=== PATIENT | female | born 1960 | race Caucasian/White ===

== ENCOUNTER 2019-06-12 01:11 | Day surgery (SDC) | payer MEDICARE, SELFPAY ==
[2019-06-10 15:16] VITALS: BMI 27.0
[2019-06-12] VITALS (7 sets, daily range): BP systolic 116–133; BP diastolic 57–71; PULSE 60–79; RESP 12–18; TEMP 36.8–37.4; O2SAT 97–100
--- NOTE | ~2019-06-12 | XR_ITS ---
EXAMINATION: XR abdomen/kub 1V DATE: 06/12/2019 11:29 INDICATION: Left renal stone. TECHNIQUE: A supine view of the abdomen on 2 radiographs was obtained. COMPARISON: CT abdomen and pelvis 05/07/2019 FINDINGS: There are no dilated loops of bowel. There is a left internal ureteral stent in expected po sition. There is a 7 mm stone in left kidney lower pole. There are phleboliths in the pelvis. There i s plate and screw fixation of right acetabulum. IMPRESSION: 1. 7 mm stone in left kidney 2. Left internal ureteral stent in expected position. Reviewed, dictated and finalized at location A. [facility] ATTORNEY GENERAL
[2019-06-12] MEDS: LACTATED RINGERS 1,000 ML 30 ML IV CONT (12:00)
[2019-06-12 12:23] LABS: Partial Thromboplastin Time 24.2 SECONDS (22.3-36.8); Prothrombin Time 12.4 Seconds (11.1-14.7)
--- NOTE | 2019-06-12 12:39 | WPDANESEPPF ---
Anes - Initial Pre Proc Eval Procedure: Operation Date: 06/12/19 13:30 Proposed Procedures p Left Extracorporeal Shock Wave Lithotripsy with Stent Removal - Gama Grayson MD Date/Time: 06/12/19 12:39 Surgeon: Gama Grayson MD Pre Op Diagnosis: kidney stone Patient Data Age: 58 Gender: F Height: 5 ft 8 in Weight: 80 kg Last Vital Signs Temp 99.0 F 06/12/19 12:21 Pulse 73 06/12/19 12:21 Resp 16 06/12/19 12:21 BP 120/57 L 06/12/19 12:21 Pulse Ox 100 06/12/19 12:21 Allergies Allergy/AdvReac Type Severity Reaction Status Date / Time No Known Allergies Allergy Verified 06/12/19 12:16 Home Medications Medication Instructions Recorded Confirmed Type sertraline 100 mg PO DAILY 05/07/19 06/12/19 History ferrous sulfate [Iron (ferrous 650 mg PO TID 06/10/19 06/12/19 History sulfate)] vitamin B complex 1 cap PO DAILY 06/10/19 06/12/19 History Laboratory Tests 06/12/19 12:09 PT 12.4 Seconds Seconds (11.1-14.7) INR 1.0 APTT 24.2 SECONDS SECONDS (22.3-36.8) Patient hx anesthesia problems: none Family hx anesthesia problems: none PMFSH Social History Social History Social History: Her 's durable power state's attorney for healthcare. She does need herself to be a full code. She has 3 children. Patient stated that she occasionally smokes cigarettes. But has not done so in many years. She said she does smoke 1 on occasion. 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 Smoking status: Never smoker Second hand tobacco smoke exposure: Yes Alcohol intake: never Drinks per week: 1 Substance use: never Substance use type: does not use Gender identity (if verbalized by the patient): Female Spiritual care concerns: No Agree to blood products: Yes Anes - Eval Final PreProcedure Day of Procedure 06/12/19 12:39 Patient weight: normal Heart: regular rate and rhythm Lungs: clear to auscultation Airway: Mallampati scale class II Neurological: alert and oriented Last oral intake: >/= 8 hours ASA classification: II Emergent: no Anesthetic plan: proceed Anesthesia type and monitoring: general LMA and standard monitoring Informed Consent: The patient's anesthetic plan and its attendant risks and benefits were discussed with the patient/family/POA. Questions were solicited and answers provided to the satisfaction of the patient/family/POA.
--- NOTE | 2019-06-12 12:46 | WPDHPUPDATE1 ---
History and Physical Update Update Date/Time: 06/12/19 12:46 History and Physical has been reviewed, including an updated exam of the patient. There are NO changes in the patient's condition. Risks, benefits, and alternatives have been discussed and questions answered. Patient agrees to proceed with procedure.
[2019-06-12] MEDS: ceFAZolin 2 GM/D5W 50 ML 2 GM/50 ML BAG IVPB (14:15)
--- NOTE | 2019-06-12 14:43 | PM.PROC ---
Procedure Note - Detailed Date of procedure: 06/12/19 Pre-op diagnosis: kidney stone Post-op diagnosis: same Procedure performed: 1. Cystoscopy, left ureteral stent removal. 2. Left ESWL Description of procedure: The patient was brought to the operative suite where she was placed in the frog-legged position on the Dornier lithotripter table. Flexible cystoscopy was undertaken with a 16F flexible cystoscopy. Her urethra and bladder neck were endoscopically normal. The bladder mucosa was normal and there was a single, orthotopic ureteral orifice bilaterally. The tip of the stent was grasped and the stent was removed with ease. The patient was then repositioned in the supine position and the focal point of the lithotriptor was placed at a 6mm left renal calculus. A total of 2500 shocks were delivered at a power setting of 7. There appeared to be good fragmentation of the stone. The patient tolerated the procedure well and was taken to the recovery room in good condition. Anesthesia: GETA Surgeon: Gama Grayson MD Estimated blood loss (mL): 0 Drains: No Packing: No Pathology: none sent Complications: No immediate complications Condition: stable Disposition: PACU
== END 2019-06-12 17:02 | disposition home or self-care (01) ==
PROVIDERS: Visit Provider Urology
PROC: (CPT 50590; principal; 2019-06-12 13:30)
DX: N20.0 Calculus of kidney (principal)
CPT/HCPCS: 50590; 36415; 74018; 85610; 85730; A9270; C1769; J0131; J0330; J0690; J1100; J2250; J2370; J2405; J2704; J7030; J7120

== ENCOUNTER 2019-07-29 09:37 | Outpatient (CLI) | payer MEDICARE, SELFPAY ==
--- NOTE | ~2019-07-29 | XR_ITS ---
EXAMINATION: XR abdomen/kub 1V INDICATION: Left ureteral stone TECHNIQUE: Supine views of the abdomen were obtained on 2 radiographs. COMPARISON: 06/12/2019 FINDINGS: The left internal ureteral stent has been. An 8 mm stone previously seen in the lower pole of the left kidney is no longer identified. There are stone fragments measuring up to 5 mm in the dis diamante left ureter near the ureterovesicular junction. A punctate stone is seen in the lower pole of the left kidney. The bowel gas pattern is normal. There is a moderate to large amount of colonic stool. Internal stabilization hardware is present in the right acetabulum. IMPRESSION: 1. Removal of the internal ureteral stent and interval treatment of the previously described left kid harlan stone with Steinstrasse of the distal left ureter and stone fragments measuring up to 5 mm. Reviewed, dictated and finalized at location A. CENTER REPRESENTATIVE IMPRESSION: 1. Removal of the internal ureteral stent and interval treatment of the previou sly described left kidney stone with Steinstrasse of the distal left ureter and stone fragments measuring up to 5 mm.
== END 2019-07-29 09:38 | disposition home or self-care (01) ==
LOC: CHSIMG 09:40
PROVIDERS: Visit Provider Urology
DX: N20.1 Calculus of ureter (principal)
CPT/HCPCS: 74018

== ENCOUNTER 2019-10-28 08:04 | Outpatient (CLI) | payer MEDICARE, SELFPAY ==
[2019-10-28 08:15] LABS: Hematocrit 41.8 % (35.0-49.0); Hemoglobin 14.2 g/dL (12.0-15.0); Mean Corpuscular Hemoglobin 31.1 pg (27.0-31.0); Mean Corpuscular Volume 91.7 fL (78.0-102.0); Mean Platelet Volume 9.9 fl (9.2-11.8); Platelet Count Result 204 K/mm3 (150-420); Red Blood Count 4.56 M/mm3 (4.20-5.40); Red Cell Distribution Width 12.1 % (11.6-14.4); White Blood Count 6.5 K/mm3 (4.8-10.8)
[2019-10-28 09:09] LABS: Alanine Aminotransferase 22 U/L (14-59); Alkaline Phosphatase 73 U/L (46-116); Anion Gap 13.4 mmol/L (7-16); Aspartate Amino Transferase 16 U/L (15-37); Bilirubin,Total 0.6 mg/dL (0.00-1.00); Blood Urea Nitrogen 22 mg/dL (7-18); Carbon Dioxide 26 mmol/L (21-32); Chloride 107 mmol/L (98-108); Cholesterol 203 mg/dL (0-200); Estimated Glomerular Filt Rate 51; Ferritin 376 ng/mL (8-252); Glucose 95 mg/dL (70-99); HDL Direct 80 mg/dL (40-60); Iron 109 ug/dL (50-170); LDL Cholesterol Calculated 110 mg/dL (<130); Osmolality Calculated 297 mOsm/kg (285-295); Percent Iron Saturation 41 % (12-57); Potassium 4.4 mmol/L (3.5-5.1); Sodium 142 mmol/L (136-145); Total Protein 7.1 g/dL (6.4-8.2); Triglycerides 63 mg/dL (0-150)
== END 2019-10-28 08:05 | disposition home or self-care (01) ==
LOC: CHSLAB 08:07
PROVIDERS: PCP Family Medicine; Visit Provider Family Medicine
DX: D69.6 Thrombocytopenia, unspecified (principal); F32.9 Major depressive disorder, single episode, unspecified; D64.9 Anemia, unspecified; R79.0 Abnormal level of blood mineral; Z00.00 Encounter for general adult medical examination without abnormal findings
CPT/HCPCS: 36415; 80053; 80061; 82728; 83540; 83550; 85027

== ENCOUNTER 2019-12-12 01:48 | Outpatient (CLI) | payer MEDICARE, SELFPAY ==
[2019-12-12 21:41] LABS: SARS-CoV-2 RNA PCR Negative
== END 2019-12-12 01:49 | disposition home or self-care (01) ==
LOC: ANHCOVIDDT 01:48
PROVIDERS: PCP Family Medicine; Visit Provider Surgery
DX: Z01.818 Encounter for other preprocedural examination (principal); Z11.59 Encounter for screening for other viral diseases
CPT/HCPCS: 87635; C9803; U0003

== ENCOUNTER 2019-12-15 03:03 | Day surgery (SDC) | payer MEDICARE, SELFPAY ==
[2019-12-10 11:34] VITALS: BMI 27.4
[2019-12-15 08:36] VITALS: BP 118/85; PULSE 91; RESP 16; TEMP 37.1; O2SAT 98; BMI 26.6
--- NOTE | 2019-12-15 08:40 | SUR.PREOP ---
ALTERNATE PHONE NUMBER FOR EMILIA [phone]
[2019-12-15] MEDS: LACTATED RINGERS 1,000 ML 150 ML IV CONT (09:02)
--- NOTE | 2019-12-15 09:25 | WPDANESEPPF ---
Anes - Initial Pre Proc Eval Procedure: Operation Date: 12/15/19 10:15 Proposed Procedures p Colonoscopy - Fede Dominguez DO Date/Time: 12/15/19 09:25 Surgeon: Fede Dominguez DO Pre Op Diagnosis: Poss Cologuard Patient Data Age: 59 Gender: F Height: 5 ft 8 in Weight: 79.5 kg Last Vital Signs Temp 37.1 C 12/15/19 08:36 Pulse 91 12/15/19 08:36 Resp 16 12/15/19 08:36 BP 118/85 12/15/19 08:36 Pulse Ox 98 12/15/19 08:36 Allergies Allergy/AdvReac Type Severity Reaction Status Date / Time No Known Allergies Allergy Verified 12/15/19 08:35 Home Medications Medication Instructions Recorded Confirmed Type ferrous sulfate [Iron (ferrous 650 mg PO TID 06/10/19 12/10/19 History sulfate)] vitamin B complex 1 cap PO DAILY 06/10/19 12/10/19 History sertraline 100 mg tablet 100 mg PO DAILY #90 tablet 11/25/19 12/10/19 Rx Patient hx anesthesia problems: none Family hx anesthesia problems: none PMFSH Past Medical History Medical History Anemia Depression Fracture of right hip requiring operative repair Headache Positive colorectal cancer screening using Cologuard test Thrombocytopenia Surgical History Surgical History H/O left knee surgery History of facial surgery Family History Family History Mother Diabetes mellitus Sibling Testicular cancer Social History Social History Social History: 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 She does need herself to be a full code. She has 3 children. Patient stated that she occasionally smokes cigarettes. But has not done so in many years. She said she does smoke 1 on occasion. 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 Smoking status: Never smoker Second hand tobacco smoke exposure: Yes Alcohol intake: never Drinks per week: 1 Substance use: never Substance use type: does not use Gender identity (if verbalized by the patient): Female Spiritual care concerns: No Agree to blood products: Yes Anes - Eval Final PreProcedure Day of Procedure 12/15/19 09:25 Patient weight: overweight Heart: regular rate and rhythm Lungs: clear to auscultation Airway: Mallampati scale class II Neurological: alert and oriented Last oral intake: >/= 8 hours ASA classification: II Emergent: no Anesthetic plan: proceed Anesthesia type and monitoring: general GIVS and standard monitoring Informed Consent: The patient's anesthetic plan and its attendant risks and benefits were discussed with the patient/family/POA. Questions were solicited and answers provided to the satisfaction of the patient/family/POA.
--- NOTE | 2019-12-15 09:27 | PM.IMHP ---
H&P: HPI History of Present Illness Chief complaint: Poss Cologuard Narrative: Jeni Sam is a 59 year old female who presents with a positive cologard test. She has never had a colonoscopy before. Denies hematochezia or melena. Grandfather had colon cancer but no first degree relatives. Review of Systems Review of Systems: All systems reviewed & are unremarkable except as noted in HPI and below Constitutional: Constitutional: Denies chills, Denies fever(s), Denies headache(s) and Denies weight loss Eyes: Eyes: Denies change in vision ENT: Denies dizziness, Denies headache(s), Denies neck mass and Denies throat swelling Cardiovascular: Cardiovascular: Denies chest pain, Denies lightheadedness and Denies dyspnea Respiratory: Respiratory: Denies cough, Denies dyspnea and Denies wheezing Gastrointestinal: Gastrointestinal: Denies abdominal pain, Denies change in bowel habits, Denies nausea and Denies vomiting Genitourinary: Genitourinary: Denies hematuria and Denies dysuria Musculoskeletal: Musculoskeletal: Reports as per HPI Integumentary/Breasts: Skin/Breast: Reports as per HPI Neurologic: Denies dizziness and Denies headache(s) Allergic/Immunologic: Allergic/Immunologic: Denies throat swelling and Denies wheezing PMFSH Past Medical History Medical History Anemia Depression Fracture of right hip requiring operative repair Headache Positive colorectal cancer screening using Cologuard test Thrombocytopenia Surgical History Surgical History H/O left knee surgery History of facial surgery Family History Family History Mother Diabetes mellitus Sibling Testicular cancer Social History Social History Social History: Her 's durable power commercial litigation attorney for healthcare. She does need herself to be a full code. She has 3 children. Patient stated that she occasionally smokes cigarettes. But has not done so in many years. She said she does smoke 1 on occasion. 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 Smoking status: Never smoker Second hand tobacco smoke exposure: Yes Alcohol intake: never Drinks per week: 1 Substance use: never Substance use type: does not use Gender identity (if verbalized by the patient): Female Spiritual care concerns: No Agree to blood products: Yes Meds Home Medications and Allergies Home Medications Medication Instructions Recorded Confirmed Type ferrous sulfate [Iron (ferrous 650 mg PO TID 06/10/19 12/10/19 History sulfate)] vitamin B complex 1 cap PO DAILY 06/10/19 12/10/19 History sertraline 100 mg tablet 100 mg PO DAILY #90 tablet 11/25/19 12/10/19 Rx Allergies Allergy/AdvReac Type Severity Reaction Status Date / Time No Known Allergies Allergy Verified 12/15/19 08:35 Vital Signs Vital Signs - 24 hr 12/15/19 08:36 Temperature 37.1 C Pulse Rate 91 Respiratory Rate 16 Blood Pressure 118/85 Pulse Oximetry 98 Exam Const: General: no acute distress and alert Orientation/consciousness: patient oriented x3 HENMT: Head: normocephalic and atraumatic Ears: hearing grossly normal bilaterally General nose exam: Normal nares present Mouth: Yes Normal oral and palatal mucosa present Eyes: Periorbital: periorbital findings normal Sclera: sclerae normal EOM: EOMs intact bilaterally Neck: Neck: normal visual inspection, no lymphadenopathy and trachea midline Chest: Chest palpation & inspection: normal inspection of the chest Resp: Effort & Inspection: normal respiratory effort Auscultation: clear to auscultation bilaterally Cardio: Jugular venous distension: no JVD Rate: regular rate Rhythm: regular rhythm Heart sounds: S1 normal heart sound present and S2 normal heart sound present Peripheral pulses:
[2019-12-15 10:13] VITALS: BP 95/58; PULSE 66; RESP 16; O2SAT 98
[2019-12-15 10:23] VITALS: BP 114/60; PULSE 55; RESP 16; O2SAT 100
[2019-12-15 10:33] VITALS: BP 114/60; PULSE 58; RESP 16; O2SAT 100
== END 2019-12-15 10:59 | disposition home or self-care (01) ==
PROVIDERS: PCP Family Medicine; Visit Provider Surgery
PROC: 0DJD8ZZ Inspection of Lower Intestinal Tract, Via Natural or Artificial Opening Endoscopic (ICD-10-PCS; CPT 45378; principal; 2019-12-15 10:15)
DX: R19.5 Other fecal abnormalities (principal); D12.8 Benign neoplasm of rectum; D12.5 Benign neoplasm of sigmoid colon; K57.30 Diverticulosis of large intestine without perforation or abscess without bleeding; D64.9 Anemia, unspecified; F32.9 Major depressive disorder, single episode, unspecified; Z72.0 Tobacco use
CPT/HCPCS: 45380; 45385; 45381; 88305; J2704; J7120

== ENCOUNTER 2020-12-13 10:07 | Outpatient (CLI) | payer MEDICARE, SELFPAY ==
[2020-12-13 10:39] LABS: Hematocrit 42.4 % (35.0-49.0); Hemoglobin 14.2 g/dL (12.0-15.0); Mean Corpuscular HGB Conc 33.5 g/dL (32.0-36.0); Mean Corpuscular Hemoglobin 31.1 pg (27.0-31.0); Mean Corpuscular Volume 92.8 fL (78.0-102.0); Mean Platelet Volume 9.6 fl (9.2-11.8); Platelet Count Result 193 K/mm3 (150-420); Red Blood Count 4.57 M/mm3 (4.20-5.40); Red Cell Distribution Width 11.8 % (11.6-14.4); White Blood Count 6.7 K/mm3 (4.8-10.8)
== END 2020-12-13 10:08 | disposition home or self-care (01) ==
LOC: CHSLAB 10:09
PROVIDERS: PCP Family Medicine; Visit Provider Family Medicine
DX: D64.9 Anemia, unspecified (principal)
CPT/HCPCS: 36415; 85027

== ENCOUNTER 2021-03-23 01:28 | Day surgery (SDC) | payer MEDICARE, SELFPAY ==
[2021-03-08 12:51] VITALS: BMI 26.6
[2021-03-23 07:47] VITALS: BP 130/83; PULSE 79; RESP 18; TEMP 36.2; O2SAT 98; BMI 26.4
[2021-03-23] MEDS: LACTATED RINGERS 1,000 ML 150 ML IV CONT (07:57)
--- NOTE | 2021-03-23 08:16 | P.PNAN_ITS ---
Anes - Initial Pre Proc Eval Procedure: Operation Date: 03/23/21 08:45 Proposed Procedures p Colonoscopy - Fede Dominguez DO Date/Time: 03/23/21 08:16 Surgeon: Fede Dominguez DO Pre Op Diagnosis: colon polyp Patient Data Age: 60 Gender: F Height: 1.73 m Weight: 78.9 kg Last Vital Signs Temp 36.2 C L 03/23/21 07:47 Pulse 79 03/23/21 07:47 Resp 18 03/23/21 07:47 BP 130/83 03/23/21 07:47 Pulse Ox 98 03/23/21 07:47 Allergies Allergy/AdvReac Type Severity Reaction Status Date / Time No Known Allergies Allergy Verified 03/23/21 07:44 Home Medications Medication Instructions Recorded Confirmed Type ferrous sulfate [Iron (ferrous 650 mg PO TID 06/10/19 03/08/21 History sulfate)] vitamin B complex 1 cap PO DAILY 06/10/19 03/08/21 History sertraline 100 mg tablet See Rx Instructions .ROUTE 03/22/21 03/23/21 Rx .COMPLEX #90 tablet Patient hx anesthesia problems: none Family hx anesthesia problems: none Results Review: All pre-operative results and documents have been reviewed as part of the pre-operative evaluation. [facility] Past Medical History Medical History Anemia Depression Fracture of right hip requiring operative repair Headache Thrombocytopenia Surgical History Surgical History H/O left knee surgery History of facial surgery Family History Family History Mother Diabetes mellitus Sibling Testicular cancer Social History Social History Social History: Her 's durable power workers compensation defense attorney for healthcare. She does need herself to be a full code. She has 3 children. Patient stated that she occasionally smokes cigarettes. But has not done so in many years. She said she does smoke 1 on occasion. 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 Smoking status: Never smoker Second hand tobacco smoke exposure: Yes Alcohol intake: never Drinks per week: 1 Substance use: never Substance use type: does not use Living arrangements: with family Gender identity (if verbalized by the patient): Female Spiritual care concerns: No Agree to blood products: Yes Anes - Eval Final PreProcedure Day of Procedure 03/23/21 08:16 Patient weight: overweight Heart: regular rate and rhythm Lungs: clear to auscultation Airway: Mallampati scale class II Neurological: alert and oriented Last oral intake: >/= 8 hours ASA classification: II Emergent: no Anesthetic plan: proceed Anesthesia type and monitoring: general GIVS and standard monitoring Results Review: All pre-operative results and documents have been reviewed as part of the pre-operative evaluation. Informed Consent: The patient's anesthetic plan and its attendant risks and benefits were discussed with the patient/family/POA. Questions were solicited and answers provided to the satisfaction of the patient/family/POA.
--- NOTE | 2021-03-23 08:53 | PM.IMHP ---
H&P: HPI History of Present Illness Date/Time: 03/23/21 08:53 Chief Complaint: History of malignant rectal polyp Narrative: this is a 60-year-old woman who presents for a follow-up colonoscopy. She had a colonoscopy 1 year ago and was found to have a rectal mass. She was referred to Colorectal surgery and wide local excision was performed. This appeared to be a malignant polyp. There is no deep invasion. Now returns for follow-up colonoscopy. Review of Systems Review of Systems: All systems reviewed & are unremarkable except as noted in HPI and below Constitutional: Constitutional: Denies chills, Denies fever(s), Denies headache(s) and Denies weight loss Eyes: Eyes: Denies change in vision ENT: Denies dizziness, Denies headache(s), Denies neck mass and Denies throat swelling Cardiovascular: Cardiovascular: Denies chest pain, Denies lightheadedness and Denies dyspnea Respiratory: Respiratory: Denies cough, Denies dyspnea and Denies wheezing Gastrointestinal: Gastrointestinal: Denies abdominal pain, Denies change in bowel habits, Denies nausea and Denies vomiting Genitourinary: Genitourinary: Denies hematuria and Denies dysuria Musculoskeletal: Musculoskeletal: Reports as per HPI Integumentary/Breasts: Skin/Breast: Reports as per HPI Neurologic: Denies dizziness and Denies headache(s) Allergic/Immunologic: Allergic/Immunologic: Denies throat swelling and Denies wheezing PMFSH Past Medical History Medical History Anemia Depression Fracture of right hip requiring operative repair Headache Thrombocytopenia Surgical History Surgical History H/O left knee surgery History of facial surgery Family History Family History Mother Diabetes mellitus Sibling Testicular cancer Social History Social History Social History: 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 She does need herself to be a full code. She has 3 children. Patient stated that she occasionally smokes cigarettes. But has not done so in many years. She said she does smoke 1 on occasion. 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 Smoking status: Never smoker Second hand tobacco smoke exposure: Yes Alcohol intake: never Drinks per week: 1 Substance use: never Substance use type: does not use Living arrangements: with family Gender identity (if verbalized by the patient): Female Spiritual care concerns: No Agree to blood products: Yes Meds Home Medications and Allergies Home Medications Medication Instructions Recorded Confirmed Type ferrous sulfate [Iron (ferrous 650 mg PO TID 06/10/19 03/08/21 History sulfate)] vitamin B complex 1 cap PO DAILY 06/10/19 03/08/21 History sertraline 100 mg tablet See Rx Instructions .ROUTE 03/22/21 03/23/21 Rx .COMPLEX #90 tablet Allergies Allergy/AdvReac Type Severity Reaction Status Date / Time No Known Allergies Allergy Verified 03/23/21 07:44 Vital Signs Vital Signs - 24 hr 03/23/21 07:47 Temperature 36.2 C L Pulse Rate 79 Respiratory Rate 18 Blood Pressure 130/83 Pulse Oximetry 98 Exam Const: General: no acute distress and alert Orientation/consciousness: patient oriented x3 HENMT: Head: normocephalic and atraumatic Ears: hearing grossly normal bilaterally General nose exam: Normal nares present Mouth: Yes Normal oral and palatal mucosa present Eyes: Periorbital: periorbital findings normal Sclera: sclerae normal EOM: EOMs intact bilaterally Neck: Neck: normal visual inspection, no lymphadenopathy and trachea midline Chest: Chest palpation & inspection: normal inspection of the chest Resp: Effort & Inspection: normal respiratory effort Auscultation: clear to auscultation bilaterally Cardio: Jugular venous distensi
[2021-03-23 09:30] VITALS: BP 107/63; PULSE 68; RESP 18; O2SAT 96
[2021-03-23 09:40] VITALS: BP 130/83; PULSE 66; RESP 18; O2SAT 99
[2021-03-23 09:50] VITALS: BP 144/81; PULSE 64; RESP 13; O2SAT 97
== END 2021-03-23 10:00 | disposition home or self-care (01) ==
PROVIDERS: PCP Family Medicine; Visit Provider Surgery
PROC: 0DJD8ZZ Inspection of Lower Intestinal Tract, Via Natural or Artificial Opening Endoscopic (ICD-10-PCS; CPT 45378; principal; 2021-03-23 08:45)
DX: Z12.11 Encounter for screening for malignant neoplasm of colon (principal); D12.0 Benign neoplasm of cecum; K62.89 Other specified diseases of anus and rectum; D64.9 Anemia, unspecified; F32.9 Major depressive disorder, single episode, unspecified
CPT/HCPCS: 45380; 88305; J2704; J7120

== ENCOUNTER 2021-08-15 08:55 | Outpatient (CLI) | payer MEDICARE, SELFPAY ==
[2021-08-15 09:17] LABS: Hemoglobin 14.3 g/dL (12.0-15.0); Mean Corpuscular HGB Conc 32.5 g/dL (32.0-36.0); Mean Corpuscular Hemoglobin 31.4 pg (27.0-31.0); Mean Corpuscular Volume 96.5 fL (78.0-102.0); Platelet Count Result 193 K/mm3 (150-420); Red Blood Count 4.56 M/mm3 (4.20-5.40)
[2021-08-15 10:21] LABS: Alanine Aminotransferase 25 U/L (14-59); Albumin Level 3.9 g/dL (3.4-5.0); Alkaline Phosphatase 76 U/L (46-116); Anion Gap 9 mmol/L (8-16); Aspartate Amino Transferase 13 U/L (15-37); Bilirubin,Total 0.4 mg/dL (0.00-1.00); Blood Urea Nitrogen 18 mg/dL (7-18); Calcium 8.5 mg/dL (8.5-10.1); Carbon Dioxide 28 mmol/L (21-32); Chloride 107 mmol/L (98-108); Cholesterol 195 mg/dL (0-200); Estimated Glomerular Filt Rate 57; Glucose 78 mg/dL (70-99); HDL Direct 84 mg/dL (40-60); LDL Cholesterol Calculated 96 mg/dL (<130); Osmolality Calculated 298 mOsm/kg (285-295); Potassium 4.4 mmol/L (3.5-5.1); Sodium 144 mmol/L (136-145); Total Protein 6.8 g/dL (6.4-8.2); Triglycerides 76 mg/dL (0-150)
== END 2021-08-15 08:56 | disposition home or self-care (01) ==
LOC: CHSLAB 08:58
PROVIDERS: PCP Family Medicine; Visit Provider Family Medicine
DX: D69.6 Thrombocytopenia, unspecified (principal); Z00.00 Encounter for general adult medical examination without abnormal findings; Z13.6 Encounter for screening for cardiovascular disorders
CPT/HCPCS: 36415; 80053; 80061; 85027

== ENCOUNTER 2023-09-26 07:04 | Outpatient (CLI) | payer MEDICARE, SELFPAY ==
--- NOTE | ~2023-09-26 | MM_ITS ---
EXAMINATION: MM screening jerry BI w robert HISTORY: Screening mammogram TECHNIQUE: Craniocaudal and mediolateral oblique 3-D tomosynthesis images were obtained and synthetic 2-D images were generated. CAD analysis was submitted and interpreted. COMPARISON: 01/11/2015 BREAST PARENCHYMAL COMPOSITION:Not Dense. There are scattered areas of fibroglandular density. FINDINGS: No suspicious mass, calcification, or architectural distortion are identified in either becky ast to suggest malignancy. There has been no suspicious interval change. IMPRESSION: No mammographic evidence of malignancy. Recommend routine screening mammography in one year. BI-RADS Category 1: Negative Reviewed, dictated and finalized at location .
[2023-09-26 07:34] LABS: Basophils Absolute Auto 0.02 K/mm3 (0.00-0.10); Basophils Percent Auto 0.2 % (0.0-1.0); Eosinophils Absolute Auto 0.15 K/mm3 (0.02-0.50); Eosinophils Percent Auto 1.7 % (1.0-6.0); Hematocrit 43.1 % (35.0-49.0); Hemoglobin 13.8 g/dL (12.0-15.0); Immature Granulocyte Absolute 0.03 K/mm3 (0.00-0.00); Immature Granulocyte Percent A 0.3 % (0.0-0.0); Lymphocytes Absolute Auto 1.08 K/mm3 (1.10-4.50); Lymphocytes Percent Auto 12.5 % (18.0-42.0); Mean Corpuscular Hemoglobin 30.9 pg (27.0-31.0); Mean Corpuscular Volume 96.6 fL (78.0-102.0); Mean Platelet Volume 10.3 fl (9.2-11.8); Monocytes Absolute Auto 0.32 K/mm3 (0.10-0.90); Monocytes Percent Auto 3.7 % (2.0-11.0); Neutrophils Absolute Auto 7.05 K/mm3 (1.70-7.20); Neutrophils Percent Auto 81.6 % (50.0-70.0); Platelet Count Result 184 K/mm3 (150-420); Red Blood Count 4.46 M/mm3 (4.20-5.40); Red Cell Distribution Width 11.9 % (11.6-14.4); White Blood Count 8.7 K/mm3 (4.8-10.8)
[2023-09-26 08:07] LABS: Alanine Aminotransferase 27 U/L (14-59); Albumin Level 3.6 g/dL (3.4-5.0); Alkaline Phosphatase 71 U/L (46-116); Anion Gap 6 mmol/L (4-12); Aspartate Amino Transferase 18 U/L (15-37); Bilirubin,Total 0.6 mg/dL (0.00-1.00); Blood Urea Nitrogen 18 mg/dL (7-18); Calcium 8.4 mg/dL (8.5-10.1); Carbon Dioxide 31 mmol/L (21-32); Chloride 106 mmol/L (98-108); Cholesterol 218 mg/dL (0-200); Estimated Glomerular Filt Rate 53; Glucose 104 mg/dL (70-99); HDL Direct 88 mg/dL (40-60); LDL Cholesterol Calculated 120 mg/dL (<130); Osmolality Calculated 297 mOsm/kg (285-295); Potassium 4.3 mmol/L (3.5-5.1); Sodium 143 mmol/L (136-145); Total Protein 6.6 g/dL (6.4-8.2); Triglycerides 49 mg/dL (0-150)
== END 2023-09-26 07:05 | disposition home or self-care (01) ==
LOC: CHSIMG 07:07
PROVIDERS: PCP Family Medicine; Visit Provider Family Medicine
DX: Z12.31 Encounter for screening mammogram for malignant neoplasm of breast (principal); F32.9 Major depressive disorder, single episode, unspecified; Z13.6 Encounter for screening for cardiovascular disorders
CPT/HCPCS: 36415; 77063; 77067; 80053; 80061; 85025

== ENCOUNTER 2024-11-18 07:45 | Outpatient (CLI) | payer MEDICARE, SELFPAY ==
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
--- OUTSIDE RECORDS SUMMARY | 2024-11-18 07:53 | XMS_ITS | Clinical Summary ---
Author Organization [facility] Address [address] [facility] [place] [address] Care Team Providers Care Neon Tube Pumper Name Role Phone ChristianMiki escalante Primary Care Provider [phone] Source Comments [facility],non-owned Affiliates and Associated Physician Practices is amultiple site organization consisting of ambulatory clinics and hospital sitesin [place], [place], [place] and [place]. This disclosure is being madepursuant to the Care Everywhere program and may not contain all information available regarding this patient. Last updated 18.[facility] Allergies No known active allergies Medications * Be aware that medications may not be up to date on this document. Alwaysverify current medications with the patient. acetaminophen (Tylenol) 500 MG tablet Take 2 (two) tablets by mouth every 6 hours Maximum allowable Acetaminophen amount = 4 Grams (4000 mg) / 24 hours. 5 Active albuterol-iprat ropium (Duo-Neb) 0.5-2.5 (3) MG/3ML nebulizer solution Inhale 3 mL by mouth every 6 hours as needed for Shortness of Breath or Wheezing 5 Active gabapentin (Neurontin) 300 MG capsule Take 1 (one) capsule by mouth 3 times daily 5 Active buPROPion SR 12hr (Wellbutrin-SR) 150 MG tablet Take 1 (one) tablet by mouth 2 times daily 5 Active sertraline (Zoloft) 100 MG tablet Take 1 (one) tablet by mouth at bedtime 5 Active lidocaine (Lidoderm) 5 % patch Apply 3 (three) patches to skin every 24 hours Apply patch to most painful area and remove after 12 hours. May reapply a new patch 12 hours later. 5 Active bisacodyl (Dulcolax) 10 MG suppository Insert 1 (one) suppository into the rectum once as needed for Constipation (if no BM 24 hours after oral bisacodyl) Active bisacodyl EC (Dulcolax) 5 MG tablet Take 1 (one) tablet by mouth once as needed for Constipation (no BM for 72 hours) 5 Active polyethylene glycol 3350 (Miralax) 17 g packet Take 17 (seventeen) g by mouth once daily as needed for Constipation 5 Active sodium phosphate rectal (Fleet Saline) enema Insert 133 mL into the rectum once as needed for Constipation (if no BM 4 hours after bisacodyl suppository) Active methocarbamol (Robaxin) 750 MG tablet Take 1 (one) tablet by mouth every 6 hours Active vitamin D3 (Cholecalcifero l) 25 MCG (1000 UNITS) tablet Take 1 (one) tablet by mouth once daily 5 Active Active Problems Problem Noted Date Diagnosed Date Acute pain 08/12/2024 Acute hypoxic respiratory failure 08/12/2024 Impaired mobility and ADLs 08/12/2024 Sacrum and coccyx fracture 08/12/2024 Fracture of ramus of right pubis 08/09/2024 Multiple rib fractures involving four or more ri bs 08/09/2024 Fracture of unspecified part of left clavicle, initial encounter for closed fracture 08/09/2024 Encounters Date Type Department Care Team Description 08/27/2024 11:45 AM CDT Clinical Support [facility] - General Surgery [address] [place] [address], [place] [address] Multiple rib fractures involving four or more ribs 08/27/2024 Travel from Last 3 Months Immunizations Immunization Administration Dates Next Due TDAP (7yrs+) 08/09/2024 Social History Tobacco Use Types Packs/Day Years Used Date Smoking Tobacco: Never Smokeless Tobacco: Never Tobacco Cessation:Counseling Given: No AUDIT-C Answer Date Recorded Q1: How often do you have a drink containing alcohol? 4 or more times a week 08/11/2024 Q2: How many drinks containi ng alcohol do you have on a typical day when you are drinking? 1 or 2 Q3: How often do you have si x or more drinks on one occasion? Never 08/11/2024 Overall Financial Resource Strain (CARDIA) Answe r Date Recorded How hard is it for you to pa y for the very basics like food, housing, medical care, and heating? Not hard at all 08/10/2024 [facility] of Occupat ional Health - Occupational Stress Questionnaire Answer Date Recorded Do you feel stress - tense, restless, nervous, or anxious, or unable to sleep at night because your mind is troubled all the time - these days? Not at all 08/10/2024 Hunger Vital Sign Answer Date Recorded Within the past 12 months, y ou worried that your food would run out before you got the money to buy more. Never true 08/11/19 25 Within the past 12 months, t he food you bought just didn't last and you didn't have money to get more. Never true 08/10/2024 PRAPARE - Transportation Answer Date Re corded In the past 12 months, has l ack of transportation kept you from medical appointments or from getting medications? No 08/01 In the past 12 months, has l ack of transportation kept you from meetings, work, or from getting things needed for daily living? No 08/10/2024 Housing Stability Vital Sign Answer Javan e Recorded In the last 12 months, was t here a time when you were not able to pay the mortgage or rent on time? No 08/10/2024 In the past 12 months, how m any times have you moved where you were living? 0 08/10/2024 At any time in the past 12 m [facility], were you homeless or living in a skilled nursing (including now)? 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 Gender Identity Not on file Sexual Orientation Not on file Last Filed Vital Signs Vital Sign Reading Time Taken Comments Blood Pressure 131/84 08/27/2024 11:51 AM CDT Pulse 92 08/27/2024 11:51 AM CDT Temperature 36.8 C (98.2 F) 08/27/2024 11:51 AM CDT Respiratory Rate 16 08/17/2024 10:01 AM CDT Oxygen Saturation 92% 08/27/2024 11:51 AM CDT Inhaled Oxygen Concentration - - Weight 79.8 kg (176 lb) 08/27/2024 11:51 AM CDT Height 172.7 cm (5' 8) 08/27/2024 11:51 AM CDT Body Mass Index 26.76 08/27/2024 11:51 AM CDT Plan of Treatment Health Maintenance Due Date Last Done Comments BONE DENSITY TESTING 1959 COLOGUARD (AGES 45-75) - COLON CA SCREENING 1959 COLON MONITORING 1959 COLONOSCOPY - COLON CA SCREENING 1959 CT COLONOGRAPHY - COLON CA SCREENING 1959 Colorectal Cancer Screening 1959 FIT - COLON CA SCREENING 1959 FLEX SIG - COLON CA SCREENING 1959 LIPID TESTING 1959 MAMMOGRAM 1959 HIV SCREENING 08/30/1974 HEPATITIS C SCREENING 08/26/1977 PAP SMEAR 08/30/1980 PNEUMOCOCCAL VACCINE 50+ (1 of 1 - PCV) 08/30/2009 ZOSTER VACCINE (1 of 2) 08/30/2009 Respiratory Syncytial Virus (RSV) Vaccine Pt: or over 60 yrs (1 - Risk 60-74 years 1-dose series) 2019 COVID-19 VACCINE ( - season) 2024 11/16/2020, 10/25/2020 DEPRESSION SCREENING 06/03/2024 MEDICARE AWV CALENDAR YEAR 2024 SCREENING FOR DIABETES 08/13/2027 , 08/12/2024, 08/11/2024, Additional history exists DTAP/TDAP/TD VACCINES (2 - Td or Tdap) 08/09/2034 08/09/2024 INFLUENZA VACCINE Completed 07/17/2024 HEPATITIS B VACCINE Aged Out No longe r eligible based on patient's age to complete this topic HIB VACCINE Aged Out No longer eligi ble based on patient's age to complete this topic HPV VACCINE Aged Out No longer eligi ble based on patient's age to complete this topic MENINGOCOCCAL (Group B) VACCINE SHARED DECISION-MAKING Aged Out No longer eligible based on patient's age to complete this topic MENINGOCOCCAL GROUPS A/C/Y/W VACCINE Aged Out No longer eligible based on patient's age to complete this topic Procedures Procedure Name Priority Date/Time Associated Diagnosis Comments BASIC METABOLIC PANEL (CALCIUM TOTAL) Routine 08/12/2024 5:51 AM CDT from Last 3 Months or Most Recently Relevant to Health Maintenance Results * (ABNORMAL) BASIC METABOLIC PANEL (CALCIUM TOTAL) (08/12/2024 5:51 AM CDT) Pathologist [facility] BUN 13 7 - 26 mg/dL 08/12/2024 6:49 AM [facility] Creatinine 0.87 0.56 - 0.96 mg/dL 08/12/2024 6:49 AM [facility] Sodium 141 136 - 145 mmol/L 08/12/2024 6:49 AM [facility] Potassium 4.2 3.5 - 4.5 mmol/L 08/12/2024 6:49 AM [facility] Chloride 109(H) 98 - 107 mmol/L 08/12/2024 6:49 AM [facility] CO2 25 22 - 29 mmol/L 08/12/2024 6:49 AM [facility] Glucose 106(H) 70 - 99 mg/dL 08/12/2024 6:49 AM [facility] Calcium 8.4 8.4 - 10.2 mg/dL 08/12/2024 6:49 AM [facility] Anion Gap 7 6 - 16 08/12/2024 6:49 AM [facility] BUN/Creatinine Ratio 15 7 - 23 08/12/2024 6:49 AM [facility] Osmolality Calculated 293 275 - 295 mOsm/kg 08/12/2024 6:49 AM [facility] eGFR by CKD-EPI 74(L) >=90 mL/min/1.7 3 m2 08/12/2024 6:49 AM [facility] Blood BLOOD SPECIMEN / Unknown Lab Venipuncture / Unknown 08/12/2024 5:51 AM CDT 08/12/2024 6:20 AM CDT us Maciel Llanos MD LAB - CHEMISTRY ORDERABLES Final Result [facility] [address] [place] [address], [place] [phone] from Last 3 Months or Most Recently Relevant to Health Maintenance Insurance MEDICARE AETNA MEDICARE ADV Advance Directives * Full Code (Latest Code Status on File) Date Activated Date Inactivated Comments 08/09/2024 5:16 PM 08/17/2024 5:35 PM Care Teams Neon Tube Pumper Relationship Specialty Start Date End Date Miki Treadwell DO [address] [place] [address] PCP - General Family Medicine 08/27/24
--- OUTSIDE RECORDS SUMMARY | 2024-11-18 07:53 | XMS_ITS | Referral Summary ---
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 Social History Tobacco Use Types Packs/Day Years Used Date Smoking Tobacco: Never Smokeless Tobacco: Never Alcohol Use Standard Drinks/Week Comments Yes 0 (1 standard drink = 0.6 oz pur e alcohol) rare less than 1 drink a month Comments No Sex and Gender Information Value Date Recorded Sex Assigned at Not on file 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[employer] Gender Identity Not on file Sexual Orientation [...] of Treatment Not on file Insurance MEDICARE MEDICARE [id number] [id number] Advance Directives For more information, please contact: [phone] * Full Code (Latest Code Status on File) Date Activated Date Inactivated Comments 02/04/2020 10:45 AM 02/05/2020 4:26 PM Care Teams Doughnut Machine Operator Relationship Specialty Start Date End Date Miki Treadwell DO [address] [place] [address] PCP - General Family Medicine 12/22/19 Fede Dominguez DO [address] [facility] [address] [place], [place] [id number] Referring Physician Surgery 12/22/19
[2024-11-18 08:15] LABS: Estimated Glomerular Filt Rate > 60
== END 2024-11-18 07:46 | disposition home or self-care (01) ==
PROVIDERS: PCP Family Medicine; Visit Provider Family Medicine
DX: S22.43XA Multiple fractures of ribs, bilateral, initial encounter for closed fracture (principal); S32.591A Other specified fracture of right pubis, initial encounter for closed fracture; K44.9 Diaphragmatic hernia without obstruction or gangrene
CPT/HCPCS: 71260; 74177; Q9967

== ENCOUNTER 2025-05-12 08:36 | Outpatient (CLI) | payer MEDICARE, SELFPAY ==
--- NOTE | ~2025-05-12 | XR_ITS ---
EXAMINATION: XR hip RT 2V w AP pelvis, 05/12/2025 8:42 [facility] HISTORY: M13.0 - Polyarthritis, unspecified COMPARISON: No comparisons available. Findings: Postsurgical changes with fixation of the right acetabulum, no acute fracture. There are remote fractures of the right superior and inferior pubic rami Moderate bilateral degenerative changes. Soft tissues unremarkable. Impression: No acute fracture or malalignment. Reviewed, dictated and finalized at location [facility] Impression: No acute fracture or malalignment.
--- NOTE | ~2025-05-12 | XR_ITS ---
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 Findings: No acute fracture or malalignment. No significant degenerative changes. Soft tissues unremarkable. Impression: No acute fracture or malalignment. Reviewed, dictated and finalized at location P. MACEUTICAL ENGINEER Impression: No acute fracture or malalignment.
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
== END 2025-05-12 08:37 | disposition home or self-care (01) ==
LOC: CHSIMG 08:38
PROVIDERS: PCP Family Medicine; Visit Provider Family Medicine
DX: M13.0 Polyarthritis, unspecified (principal); M79.671 Pain in right foot
CPT/HCPCS: 73502; 73562; 73630